=== PATIENT | female | born 1950 | race African-American/Black ===

== ENCOUNTER 2024-05-24 13:37 | Emergency (ER) | payer MEDICARE, SELFPAY ==
--- NOTE | ~2024-05-24 | CT_ITS ---
CT brain wo con Ordering provider: Allison Ochoa PA-C History: 74 years Female with . AMS . Comparison: None. Technique: CT of the head without contrast. Radiation reduction technique utilized. DLP is 1210.67 mGy. FINDINGS: BRAIN PARENCHYMA AND CSF SPACES: Mild leukoaraiosis and diffuse cortical atrophy. Mild atheromatous d isease. No midline shift, mass effect or hemorrhage. The brain parenchyma and CSF spaces are otherwi se normal. VISUALIZED PARANASAL SINUSES: Well aerated. MASTOIDS: Well aerated. BONES: The bones appear intact. SOFT TISSUES: Visualized nasopharynx is normal. Superficial soft tissues are normal. IMPRESSION: No acute intracranial findings. Reviewed, dictated and finalized at location A.
--- NOTE | ~2024-05-24 | XR_ITS ---
XR chest 1V Ordering provider: Allison Ochoa PA-C History: 74 years Female with . AMS . Comparison: None. FINDINGS: MEDIASTINUM: The cardiac silhouette is slightly enlarged. Widening Of the mediastinum is noted which may be vascular. Prominent Congestive norma. LUNGS: No effusion or pneumothorax. Bilateral alveolar and interstitial opacification is seen suggest navin of pulmonary edema versus pneumonia. OTHER: No free air under the diaphragm. IMPRESSION: Bilateral interstitial and alveolar opacification suggestive of pulmonary edema versus Pneumonia. Cli nical correlation advised. Widening of the mediastinum with prominent norma further evaluation advised. Reviewed, dictated and finalized at location A. IMPRESSION: Bilateral interstitial and alveolar opacification suggestive of pulmonary edema versus Pneumonia. Clinical correlation advised. Widening of the mediastinum with prominent norma further evaluation advised.
--- NOTE | ~2024-05-24 | CT_ITS ---
CTA chest abdomen pelvis Ordering provider: Allison Ochoa PA-C History: . CXR with prominent norma and widened mediastinum . Comparison: None. Technique: CT angiogram chest, abdomen and pelvis was performed following timed intravenous injection of contrast. Thin slice axial images and reformatted coronal images were obtained. Three dimensional reformatted images of the chest were also obtained using a [employer] workstation. Radiation reduction t echnique utilized. DLP is 1212.23 mGy. 100 mL Omnipaque 350 was given IV. FINDINGS: CHEST: --THORACIC AORTA: Mild atheromatous disease. No aneurysm, dissection or mediastinal hematoma. --GREAT VESSELS: Normal as visualized. --PULMONARY ARTERIES: Filling defect seen in the branches of the right main pulmonary artery suggesti ve of pulmonary embolus. Right ventricular strain is noted. --VISUALIZED THORACIC INLET: Normal. --MEDIASTINUM: Coronary arteries: Mild atheromatous disease. Heart/other: The heart is not enlarged. Lymph nodes: No mediastinal or hilar adenopathy. --LUNGS: No pulmonary nodules or masses. Bilateral moderate pleural effusion with adjacent atelectatic changes . --MUSCULOSKELETAL: Superficial soft tissues: Edema in the subcutaneous tissues more prominent on the right side. The sup erficial soft tissues are normal. Bones: Age appropriate degenerative changes of the spine. ABDOMEN/PELVIS: --MUSCULOSKELETAL: Bones: Age appropriate degenerative changes of the spine. Bilateral sacroiliacs. Right hip arthroplas ty. Superficial soft tissues: Edema is seen in the subcutaneous tissues more on the right side. --UPPER ABDOMINAL ORGANS: Liver: Fat infiltration. Small hypodensity in the segment 8 most likely a small cyst. Gallbladder: Possible gallstones with contrast seen in the gallbladder most likely due to previous co ntrast study.. Spleen: Normal. Stomach/duodenum: Small sliding hiatus hernia. Pancreas: Atrophic pancreas Adrenals: Normal. Kidneys: Normal. --PELVIC ORGANS: Contrast is seen in the urinary bladder with compression and deviation to the left s berenice --BOWEL AND MESENTERY: Colon: No evidence of diverticulitis. Normal appendix. Small Bowel: Normal. No obstruction. Peritoneum/mesentery: No free air. Minimal fluid is seen in the pelvis and around the liver suggestiv e of bursitis. No mesenteric lymphadenopathy. Large mass is seen in the pelvis and abdomen to the lef t side with solid portion which is highly suggestive of a mass most likely from the ovary. The mass m easures 27 x 10 cm which is suggestive of cystadenoma.. --RETROPERITONEUM: No retroperitoneal lymphadenopathy. --ARTERIES: ABDOMINAL AORTA: Moderate atheromatous disease. No aneurysm or dissection. RENAL ARTERIES: Atherosclerotic changes. No stenosis or CELIAC AXIS: Atherosclerotic changes. SMA: Atherosclerotic changes. KAY: Normal. ILIAC AND VISUALIZED FEMORAL ARTERIES: Normal. MESENTERIC ARTERIES: Normal. IVC filter is noted. IMPRESSION: CHEST: 1. pulmonary embolism. Right ventricular strain is noted. 2. No aortic dissection. 3. Bilateral pleural effusion with adjacent atelectasis. ABDOMEN/PELVIS: 1. Large cystic mass in the right side of the pelvis and abdomen. The possibility of 2 adjacent cyst s cannot be excluded. 2. Cholelithiasis. 3. Ascites. 4. Sliding hiatus hernia. The results was notified to the provider Allison Ochoa PA-C At 5:31 PM on May 24, 2024 Reviewed, dictated and finalized at location A.
[2024-05-24 13:42] VITALS: BP 128/88; PULSE 105; RESP 12; TEMP 36.5; O2SAT 98
--- NOTE | 2024-05-24 14:15 | ECG_ITS ---
Test Date: 2024-05-24 15:17:17 Measurements Intervals [place] Rate: 113 P: 119 HI: 200 QRS: 40 QRSD: 138 T: 0 QT: 369 QTc: 506 Interpretive Statements POOR QUALITY ECG, CHALLENGING/DIFFICULT INTERPRETATION ATRIAL TACHYCARDIA WITH ABNORMAL P-WAVE VECTOR SUGGEST ECTOPIC ATRIAL RHYTHM LOW-VOLTAGE QRS RIGHT BUNDLE BRANCH BLOCK [120+ ms QRS DURATION, UPRIGHT V1, 40+ ms S IN I/aVL/V4/V5/V6] ABNORMAL ECG No previous ECG available for comparison Electronically Signed On 05-24-2024 16:02:05 CDT by Adis Austin M.D.
--- NOTE | 2024-05-24 14:16 | ED.AMS ---
HPI - Altered Mental Status General Chief Complaint: Altered Mental Status <Allison Ochoa PA-C - Last Filed: 06/01/24 01:44> Stated Complaint: AMS <Allison Ochoa PA-C - Last Filed: 06/01/24 01:44> Time Seen by Provider: 05/24/24 14:06 <Allison Ochoa PA-C - Last Filed: 06/01/24 01:44> History of Present Illness HPI narrative: 74-year-old female with history of stage IV CKD, hypertension, IBS, GERD presents to the emergency department via EMS from [facility] for altered mental status and bilateral leg edema. Patient is unable to provide significant history is due to mental status. When asked why she is in the emergency department she states because she is dizzy and short of breath. Unknown baseline mental status. <Allison Ochoa PA-C - Last Filed: 06/01/24 01:44> Related Data Allergies/Adverse Reactions: Allergies Allergy/AdvReac Type Severity Reaction Status Date / Time No Known Allergies Allergy Verified 05/24/24 18:09 <Allison Ochoa PA-C - Last Filed: 06/01/24 01:44> Review of Systems Review of Systems: ROS unobtainable: Yes unobtainable due to mental status <Allison Ochoa PA-C - Last Filed: 06/01/24 01:44> [facility] Past Medical History Medical History: Medical History (Updated 05/26/24 @ 00:00 by Delvin Dean) History of gastroesophageal reflux (GERD) History of hypertension <Allison Ochoa PA-C - Last Filed: 06/01/24 01:44> Social History Social History: Social History (Updated 05/25/24 @ 02:27 by Thu Bunch PA-C) Substance use: never <SARA Murphy Last Filed: 06/01/24 01:44> Exam Narrative: GENERAL: Chronically ill-appearing, well-nourished, and in no acute distress. HEAD: Normocephalic, atraumatic. EYES: PERRLA and EOMI. Scleral icterus ENT: Nares clear, no rhinorrhea or epistaxis. Mucous membranes dry NECK: Supple. CHEST: Clear to auscultation. No respiratory distress. HEART: Regular rate and rhythm. No murmur heard. Normal peripheral pulses. ABDOMEN: Soft, nontender, nondistended, normal active bowel sounds. EXTREMITIES: Normal range of motion. 3+ pitting edema to BLE extending proximally to upper thigh SKIN: stage II pressure ulcer to the left sacrum With purulent base NEURO: No focal deficits. Moving all extremities spontaneously. Pt A&Ox1 <Allison Ochoa PA-C - Last Filed: 06/01/24 01:44> Course Course Emergency Course: I was able to discussed patient's case with low fell at long-term staff who stated patient was admitted to [facility] 1 week ago from [facility]. States on admission she was feeding herself and talking normally A&O times 3-4. States within the past few days she has declined. States she has had increased edema in her legs, decreased urine output, appears dehydrated, has been A&O x1 and sleeping more than normal. Her last known well was 05/21. States she has not been responding appropriately which is abnormal for her. [facility] staff was able to provide some prior lab results. Her creatinine on 05/09 was 1.8, hemoglobin was 8 to 9, heart total bilirubin on 05/11 was 1.1. <SARA Murphy Last Filed: 06/01/24 01:44> I was able to discussed patient's case with low fell at long-term staff who stated patient was admitted to [facility] 1 week ago from [facility]. States on admission she was feeding herself and talking normally A&O times 3-4. States within the past few days she has declined. States she has had increased edema in her legs, decreased urine output, appears dehydrated, has been A&O x1 and sleeping more than normal. Her last known well was 05/21. States she has not been responding appropriately which is abnormal for her. [facility] staff was able to provide some prior lab results. Her creatinine on 05/09 was 1.8, hemoglobin was 8 to 9, her total bilirubin on 05/11 was 1.1. <Thu Bunch PA-C - Last Fi
[2024-05-24 14:32] VITALS: BP 120/94; PULSE 100; RESP 16; O2SAT 98
[2024-05-24 14:45] LABS: Basophils Absolute Auto 0.1 K/mm3 (0.0-0.1); Basophils Percent Auto 0.6 % (0.2-1.2); Eosinophils Absolute Auto 0.2 K/mm3 (0-0.3); Eosinophils Percent Auto 1.6 % (0-4.4); Hematocrit 29.2 % (37.0-47.0); Hemoglobin 9.5 g/dL (12.0-15.0); Immature Granulocyte Absolute 0.05 K/mm3 (0.00-0.031); Immature Granulocyte Percent A 0.5 % (0-0.5); Lymphocytes Absolute Auto 1.24 K/mm3 (0.9-3.2); Lymphocytes Percent Auto 12.9 % (18.3-44.2); Mean Corpuscular HGB Conc 32.5 g/dl (32-36); Mean Corpuscular Hemoglobin 28.8 pg (26-34); Mean Corpuscular Volume 88.5 fl (80-100); Mean Platelet Volume 10.2 fl (7.4-10.4); Monocytes Absolute Auto 0.8 K/mm3 (0.1-0.6); Monocytes Percent Auto 8.2 % (2.6-8.5); Neutrophils Absolute Auto 7.3 K/mm3 (1.3-6.7); Neutrophils Percent Auto 76.2 % (45.5-73.1); Platelet Count Result 228 k/mm3 (150-375); Red Cell Distribution Width 18.9 % (11.5-14.5); White Blood Count 9.6 K/mm3 (4.5-10.0)
[2024-05-24 14:56] LABS: INR 1.2; Prothrombin Time 15.9 Seconds (11.1-14.7)
[2024-05-24 14:57] LABS: Partial Thromboplastin Time 36.4 Seconds (22.3-36.8)
[2024-05-24 15:16] LABS: Alanine Aminotransferase 28 U/L (6-35); Albumin Level 2.4 g/dL (3.5-5.1); Alkaline Phosphatase 225 U/L (38-126); Anion Gap 4 mmol/L (4-12); Aspartate Amino Transferase 70 U/L (14-36); Bilirubin,Total 3.7 mg/dL (0.2-1.3); Blood Urea Nitrogen 30 mg/dL (7-17); Calcium 8.7 mg/dL (8.4-10.2); Carbon Dioxide 20 mmol/L (22-30); Chloride 109 mmol/L (98-107); Creatine Kinase 63 U/L (30-135); Estimated CRCL calculation 25 ml/min; Estimated Glomerular Filt Rate 36; Glucose 80 mg/dL (65-110); Potassium 5.1 mmol/L (3.4-5.0); Sodium 133 mmol/L (137-145)
--- NOTE | 2024-05-24 15:23 | ECG_ITS ---
Test Date: 2024-05-24 15:27:35 Measurements Intervals [place] Rate: 118 P: 112 [place]: 189 QRS: 33 QRSD: 143 T: -33 QT: 367 QTc: 514 Interpretive Statements ATRIAL TACHYCARDIA WITH UNUSUAL P-WAVE VECTOR, SUGGEST ECTOPIC ATRIAL RHYTHM RIGHT BUNDLE BRANCH BLOCK [120+ ms QRS DURATION, UPRIGHT V1, 40+ ms S IN I/aVL/V4/V5/V6] LOW-VOLTAGE QRS ABNORMAL ECG Compared to ECG 05/24/2024 15:17:17 No significant changes Electronically Signed On 05-24-2024 16:05:10 CDT by Adis Austin M.D.
[2024-05-24 15:34] LABS: NT Pro B Type Natriuretic Pept 2270 pg/mL (19.9-100); Troponin I 0.044 ng/mL (0.000-0.034)
[2024-05-24 15:53] LABS: Appearance Urine Clear (Clear); Bacteria Urine None Seen /hpf; Bilirubin Urine 2+ (Negative); Blood Urine Negative (Negative); Budding Yeast Urine Present /hpf; Color Urine Dark Yellow (Yellow); Glucose Urine UA Negative (Negative); Ketones Urine Negative (Negative); Leukocyte Esterase Ur 1+ LEU/UL (Negative); Need Manual Microscopic Reviewed; Nitrate Urine Positive (Negative); Non Pathogenic Casts 0-2; Protein Urine Trace mg/dL (Negative); RBC Urine 51-100 /hpf (0-2); Specific Grav Ur 1.019 (1.001-1.035); Squamous Epithelial Cell Urine None Seen /hpf (Few); WBC Urine 0-5 /hpf (0-3); pH Urine 5.5 (5.0-9.0)
[2024-05-24 15:54] LABS: Add Urine Microscopic? YES
[2024-05-24 17:41] VITALS: PULSE 113
[2024-05-24 17:53] VITALS: BP 153/97; PULSE 118; RESP 16; O2SAT 97
[2024-05-24] MEDS: FUROSEMIDE INJ 40 MG/4 ML VIAL IV PUSH (18:16)
[2024-05-24 18:55] VITALS: BP 117/87; PULSE 117; RESP 18; O2SAT 100
[2024-05-24] MEDS: SODIUM CHLORIDE 0.9% IV 1,000 ML 500 ML IV CONT (19:00)
--- NOTE | 2024-05-24 19:02 | ECG_ITS ---
Test Date: 2024-05-24 19:09:06 Measurements Intervals [place] Rate: 111 P: 0 VA: 0 QRS: 57 QRSD: 144 T: 0 QT: 392 QTc: 534 Interpretive Statements ATRIAL FIBRILLATION WITH RAPID VENTRICULAR RESPONSE RIGHT BUNDLE BRANCH BLOCK [120+ ms QRS DURATION, UPRIGHT V1, 40+ ms S IN I/aVL/V4/V5/V6] Compared to ECG 05/24/2024 15:27:35 atrial fibrillation is new Electronically Signed On 05-25-2024 11:09:59 CDT by Raghu Fabian M.D.
[2024-05-24 19:21] LABS: Lactic Acid Reflex 3.4 mmol/L (0.7-2.0); Magnesium 1.8 mg/dL (1.6-2.3)
[2024-05-24 19:37] LABS: Free T4 Free Thyroxine Reflex 0.81 ng/dL (0.78-2.19)
[2024-05-24 19:46] LABS: Troponin I 0.049 ng/mL (0.000-0.034)
[2024-05-24 20:39] LABS: Total Triiodothyronine (T3) 0.41 NG/ML (0.97-1.69)
[2024-05-24] MEDS: VANCOMYCIN 1,250 MG/NS 250 ML 1,250 MG/250 ML BAG 166.67 MG IVPB (21:21)
[2024-05-24] MEDS: SODIUM CHLORIDE 0.9% IV 500 ML 100 ML IV CONT (21:21)
[2024-05-24 22:08] LABS: Reflex Lactic Acid Yes or No Add Lactic
[2024-05-24 22:46] LABS: Lactic Acid 2.7 mmol/L (0.7-2.0)
--- NOTE | 2024-05-24 22:48 | PC.NURSE ---
Pt left via EMS with vancomycin and normal saline running through IV while being transferred to [place].
== END 2024-05-24 22:52 | disposition short-term general hospital (02) ==
PROVIDERS: Emergency Provider Physician Assistant
DX: I26.99 Other pulmonary embolism without acute cor pulmonale (principal); R41.82 Altered mental status, unspecified; L89.152 Pressure ulcer of sacral region, stage 2; R82.998 Other abnormal findings in urine; I12.9 Hypertensive chronic kidney disease with stage 1 through stage 4 chronic kidney disease, or unspecified chronic kidney disease; N18.4 Chronic kidney disease, stage 4 (severe); K58.9 Irritable bowel syndrome, unspecified; K21.9 Gastro-esophageal reflux disease without esophagitis; R06.02 Shortness of breath; I45.10 Unspecified right bundle-branch block; I47.19 Other supraventricular tachycardia; R91.8 Other nonspecific abnormal finding of lung field; I70.0 Atherosclerosis of aorta; I65.23 Occlusion and stenosis of bilateral carotid arteries; K44.9 Diaphragmatic hernia without obstruction or gangrene; K86.89 Other specified diseases of pancreas; R93.41 Abnormal radiologic findings on diagnostic imaging of renal pelvis, ureter, or bladder; J90 Pleural effusion, not elsewhere classified; K80.20 Calculus of gallbladder without cholecystitis without obstruction; R18.8 Other ascites; R19.09 Other intra-abdominal and pelvic swelling, mass and lump
CPT/HCPCS: 36415; 70450; 71045; 71275; 74174; 80053; 81001; 82550; 83605; 83735; 83880; 84439; 84443; 84480; 84484; 85025; 85610; 85730; 87040; 87070; 87205; 93005; 96361; 96365; 96367; 96375; 99285; J0696; J1940; J3370; J7030; J7040; Q9967